=== PATIENT | female | born 1970 | race Hispanic/Latino ===

== ENCOUNTER 2018-02-10 01:44 | Observation (INO) | payer SELFPAY ==
[~2018-02-10] VITALS: Ht 157.5 cm; Wt 92.6 kg
[2018-02-10 02:42] LABS: HEMATOCRIT 36.4 % (36.0-46.0); HEMOGLOBIN 12.2 G/DL (11.9-15.5); MCH 29.7 PG (29.0-34.0); MCHC 33.5 G/DL (30.0-36.0); MCV 88.6 FL (83-99); PLATELET COUNT 281 K/uL (156-360); RBC DIS.WIDTH-CV 13.1 % (11.8-14.6); RBC DIS.WIDTH-SD 42.2 % (39-53); RED BLOOD COUNT 4.11 M/uL (3.80-5.20); WHITE BLOOD COUNT 9.7 K/uL (4.1-10.2)
[2018-02-10 02:52] LABS: CHLORIDE 107 mEq/L (99-109); SODIUM 140 mEq/L (136-147)
[2018-02-10 02:54] LABS: GLUCOSE 104 mg/dL (70-99)
[2018-02-10 02:58] LABS: CREATININE 0.6 mg/dL (0.6-1.3); GFR ESTIMATE (CALCULATED) > 59 mL/min/
[2018-02-10 02:59] LABS: UREA NITROGEN (BUN) 11 mg/dL (9-23)
[2018-02-10 03:22] LABS: APPEARANCE SL.HAZY ((CLEAR)); BILIRUBIN NEGATIVE; BLOOD MODERATE; COLOR YELLOW ((YELLOW)); GLUCOSE (STRIP) NEGATIVE; KETONES NEGATIVE; LEUKOCYTES TRACE; NITRITE NEGATIVE; PROTEIN (STRIP) 30; UROBILINOGEN 0.2 MG/DL (0.2-1.0)
[2018-02-10 03:27] LABS: BACTERIA NONE SEEN /HPF; EPITHELIAL CELLS 2+ /HPF; MUCUS 3+ /LPF; RED BLOOD CELLS 20-30 /HPF (0-5)
[2018-02-10 03:49] LABS: ERTH.SED.RATE 16 MM/HR (0-20)
[2018-02-10 04:28] LABS: MAGNESIUM 2.5 mg/dL (1.3-2.7)
[2018-02-10 04:41] LABS: TROP-I INTERPRETATION NEGATIVE; TROPONIN-I < 0.01 ng/mL (0.0-0.30)
[2018-02-10] MEDS ORDERED: LEVO-T25 MCG PO (07:27)
[2018-02-10] MEDS ORDERED: LEVO-T300 MCG PO (07:28)
[2018-02-10] MEDS ORDERED: ERGOCALCIF50000 UNIT PO (07:28)
[2018-02-10 08:01] VITALS: BP 116/59
[2018-02-10 08:11] LABS: THYROTROPIN (TSH) 3.4 MIU/L (0.4-5.5)
[2018-02-10 11:00] LABS: LYME DISEASE SEROLOGY SCREEN NEGATIVE (NEGATIVE)
[2018-02-10 12:13] LABS: BENZODIAZEPINES, URINE SCREEN Negative (200 ng/mL)
[2018-02-10 13:15] LABS: TROP-I INTERPRETATION NEGATIVE; TROPONIN-I < 0.01 ng/mL (0.0-0.30)
[2018-02-10 14:53] VITALS: BP 98/51
[2018-02-10 14:54] VITALS: BP 114/57
[2018-02-10 14:55] VITALS: BP 108/57
[2018-02-10 18:26] LABS: TROP-I INTERPRETATION NEGATIVE; TROPONIN-I < 0.01 ng/mL (0.0-0.30)
[2018-02-10 19:20] VITALS: BP 105/54
[2018-02-10] MEDS ORDERED: AMITRIPTYLINE H10 MG PO (21:01)
[2018-02-10] MEDS ORDERED: ANTIVERT25 MG PO (21:03)
== END 2018-02-10 22:09 | disposition home or self-care (01) ==
LOC: EME 01:44 → EDOF 06:47 → 4SOUTH 06:47 → EDOF 06:47 → ENRESERVTM 06:51 → CANRESERV 06:51 → ENRESERV 06:51 → 4SOUTH 07:51
PROVIDERS: Hospitalist; Nurse Practitioner Adult Health; Physician Assistant
DX: I95.1 Orthostatic hypotension (principal); E86.0 Dehydration; I49.3 Ventricular premature depolarization; E55.9 Vitamin D deficiency, unspecified; E66.9 Obesity, unspecified; F17.210 Nicotine dependence, cigarettes, uncomplicated; R51 Headache; R11.2 Nausea with vomiting, unspecified
CPT/HCPCS: 70450; 70551; 71046; 80048; 80306 90; 81003; 83735; 84443; 84484; 84702; 85027; 85651; 86618; 87086; 93005; 93306; 93880; 99281; 99285; G0378; J1650; J7030